=== PATIENT | female | born 2000 | race African-American/Black ===

== ENCOUNTER 2018-03-24 19:08 | Emergency (ER) | payer MEDICAID ==
--- NOTE | 2018-03-24 19:49 | ER Document Report ---
ED Headache - General Chief Complaint: Headache Stated Complaint: HEAD ACHE Time Seen by Provider: 03/24/18 19:34 Mode of Arrival: Ambulatory Information source: Patient TRAVEL OUTSIDE OF THE [place] IN LAST 30 DAYS: No - HPI Patient complains to provider of: Headache Notes: Patient is here with complaints of "brain pain "for the last year. She states that she seems to have intermittent pain that is migratory in nature around her entire head. She states that it is not a headache, that it is pain in her actual brain. She denies any head injury. No fever. She was having some blurred vision last year. She denies any blurred vision now. She denies any headache currently. Also complains of some tightness in her neck occasionally as well. No injury to the neck. She denies fevers. She denies nausea, vomiting, diarrhea. She denies unilateral numbness, tingling, weakness. No chest pain or shortness of breath. She is new to the area and states that she is in the process of getting established with a primary care doctor and has her first appointment in March. She denies any other complaints at this time. Nothing makes her symptoms better or worse. - Related Data Allergies/Adverse Reactions: No Known Allergies Allergy (Verified 03/24/18 20:02) Past Medical History - Social History Smoking Status: Unknown if Ever Smoked Family History: Reviewed & Not Pertinent Review of Systems - Review of Systems -: Yes All other systems reviewed and negative Physical Exam - Vital signs Vitals: Temp Pulse Resp BP Pulse Ox 99.8 F 100 18 110/63 100 03/24/18 19:20 03/24/18 19:20 03/24/18 19:20 03/24/18 19:20 03/24/18 19:20 - Notes Notes: GENERAL: alert, cooperative, nontoxic, no distress. HEAD: normocephalic, atraumatic EYES: conjunctiva pink without discharge, no external redness or swelling. Pupils are equal, round, reactive to light. EARS: no external swelling, no external redness NOSE: atraumatic, no external swelling MOUTH/THROAT: mucous membranes moist and pink, posterior pharynx without erythema, swelling, exudate. No trismus or drooling. NECK: soft, supple, full range of motion, no meningismus. CHEST: no distress, lungs clear and equal throughout. No wheezing, rales, rhonchi. CARDIAC: regular rate and rhythm, no murmur, normal capillary refill, normal pulses. No peripheral edema noted. BACK: full range of motion, no CVA tenderness. EXTREMITIES: full range of motion of all extremities. No redness, no swelling. NEURO: alert and oriented x 3, cranial nerves II through XII are grossly intact. Upper and lower extremities are equal throughout. Normal sensation. No focal deficits, full range of motion of all extremities. normal finger to nose. NIH stroke score of 0. PYSCH: appropriate mood, affect. Patient is cooperative. SKIN: pink, warm, dry, no rash. Course - Re-evaluation Re-evalutation: 03/24/18 20:42 Patient is nontoxic-appearing with stable vitals. She is here with complaints of "pain in her brain "for the last year. She denies any pain currently. She has a benign exam. Nonfocal neurological exam. She had no head injury. She also complains of some occasional stiffness in her neck. This point CT of the brain showed no acute findings in the emergency department. Patient can be discharged home with instructions to follow-up with her primary care doctor and to potentially get established with a neurologist due to her chronic head pain. Patient verbalized understanding of this. She will be discharged home with instructions to follow-up as directed. Follow-up sooner for severe worsening pain, high fever, blurred or loss vision, numbness, tingling, weakness, any further concerns. The patient's emergency department workup and current diagnosis were explained to the patient and or family. Follow-up instructions were provided. Medications if prescribed were discussed. Instructions for when to return to the emergency department including specific worrisome symptoms were discussed with the patient and/or family. - Vital Signs Vital signs: Temp Pulse Resp BP Pulse Ox 99.8 F 100 18 110/63 100 03/24/18 19:20 03/24/18 19:20 03/24/18 19:20 03/24/18 19:20 03/24/18 19:20 - Diagnostic Test Radiology reviewed: Image reviewed, Reports reviewed - CT head negative Discharge - Discharge Clinical Impression: Cephalgia Qualifiers: Headache type: unspecified Headache chronicity pattern: chronic headache Intractability: not intractable Qualified Code(s): R51 - Headache Condition: Stable Disposition: HOME, SELF-CARE Instructions: Headache ([facility]), Family Physicians / Practices Additional Instructions: Tylenol and Motrin as needed for pain when you are having the pain. Follow-up with your new primary care doctor as scheduled. Follow-up with neurology at the next available appointment. Follow-up sooner for worsening pain, fever, numbness, tingling, weakness, blurred or loss vision, persistent vomiting, or for any further concerns. Forms: Smoking Cessation Education Referrals: [facility] [Provider Group] - Follow up as needed MAC SCOTT MD [NO LOCAL MD] - Follow up as needed
--- NOTE | 2018-03-24 20:17 | RADIOLOGY REPORT (SQ) ---
EXAM DESCRIPTION: CT HEAD WITHOUT COMPLETED DATE/TIME: 03/24/2018 8:06 pm REASON FOR STUDY: INTERMITTENT HEADACHES OVER 1 YEAR COMPARISON: None. TECHNIQUE: Axial images acquired through the brain without intravenous contrast. Images reviewed wi th bone, brain and subdural windows. Images stored on PACS. All CT scanners at this facility use dose modulation, iterative reconstruction, and/or weight based d osing when appropriate to reduce radiation dose to as low as reasonably achievable (ALARA). [facility]: Dose Right [facility]: CareDose [facility]: Dose Right [facility]: Teradose 4D [facility]: Yi [employer] RADIATION DOSE: CT Rad equipment meets quality standard of care and radiation dose reduction techniq ues were employed. CTDIvol: 53.2 mGy. DLP: 1044 mGy-cm. mGy. LIMITATIONS: None. FINDINGS: VENTRICLES: Normal size and contour. CEREBRUM: No masses. No hemorrhage. No midline shift. No evidence for acute infarction. Normal gra y/white matter differentiation. No areas of low density in the white matter. CEREBELLUM: No masses. No hemorrhage. No alteration of density. No evidence for acute infarction. EXTRAAXIAL SPACES: No fluid collections. No masses. ORBITS AND GLOBE: No intra- or extraconal masses. Normal contour of globe without masses. CALVARIUM: No fracture. PARANASAL SINUSES: No fluid or mucosal thickening. SOFT TISSUES: No mass or hematoma. OTHER: No other significant finding. IMPRESSION: NORMAL BRAIN CT WITHOUT CONTRAST. EVIDENCE OF ACUTE STROKE: NO. COMMENT: Quality ID # [id number]: Final reports with documentation of one or more dose reduction techniques (e.g., Automated exposure control, adjustment of the mA and/or kV according to patient size, use of iterative reconstruction technique) TECHNICAL DOCUMENTATION: JOB ID: [id number] [employer]- All Rights Reserved Reading location - IP/workstation name: [email or web address]
[2018-03-24 21:13] VITALS: BP 112/63
== END 2018-03-24 21:11 | disposition home or self-care (01) ==
LOC: ER 19:08
DX: R51 Headache (principal); M43.6 Torticollis
CPT/HCPCS: 70450; 99284

== ENCOUNTER 2018-03-25 00:20 | Emergency (ER) | payer MEDICAID ==
[2018-03-25] MEDS ORDERED: NORMAL SALINE 1000 ML 1,000 ML IV ONE (01:05)
--- NOTE | 2018-03-25 01:19 | ER Document Report ---
ED General - General Chief Complaint: Palpitations Stated Complaint: RAPID HEART RATE/DIZZYNESS Time Seen by Provider: 03/25/18 00:57 Notes: Patient is a 18-year-old female who comes to the emergency department for chief complaint of feeling like her heart is racing, feeling lightheaded, she states she also felt a shortness of breath and discomfort in her chest. She states this lasted a very short amount of time, she denies any current symptoms except feeling "jittery". She states she was in a car with "a bunch of people smoking marijuana", she states she did not actually use any herself, she denies any other recreational drugs, she denies alcohol, smoking cigarettes, or any daily medications. She denies history of the same. TRAVEL OUTSIDE OF THE [place] IN LAST 30 DAYS: No - Related Data Allergies/Adverse Reactions: No Known Allergies Allergy (Verified 03/24/18 20:02) Past Medical History - General Information source: Patient - Social History Smoking Status: Never Smoker Frequency of alcohol use: None Drug Abuse: None Lives with: Friend Family History: Reviewed & Not Pertinent - Medical History Medical History: Negative Renal/ Medical History: Denies: Hx Peritoneal Dialysis Surgical Hx: Negative - Immunizations Immunizations up to date: Yes Hx Diphtheria, Pertussis, Tetanus Vaccination: Yes Review of Systems - Review of Systems Constitutional: See HPI EENT: No symptoms reported Cardiovascular: See HPI Respiratory: See HPI Gastrointestinal: No symptoms reported Genitourinary: No symptoms reported Female Genitourinary: No symptoms reported Musculoskeletal: No symptoms reported Skin: No symptoms reported Hematologic/Lymphatic: No symptoms reported Neurological/Psychological: See HPI Physical Exam - Vital signs Vitals: Temp Pulse Resp BP Pulse Ox 97.9 F 102 H 18 91/46 L 99 03/25/18 00:34 03/25/18 00:34 03/25/18 00:34 03/25/18 00:34 03/25/18 00:34 - General General appearance: Anxious In distress: None - HEENT Head: Normocephalic, Atraumatic Eyes: Normal Extraocular movements intact: Yes Eyelashes: Normal Pupils: PERRL Mouth/Lips: Normal Mucous membranes: Dry Pharynx: Normal Neck: Normal - Respiratory Respiratory status: No respiratory distress. No: Respiratory distress, Retractions, Tachypnea Breath sounds: Normal. No: Decreased air movement, Wheezing - Cardiovascular Rhythm: Regular, Tachycardia. No: Irregularly irregular, Extrasystoles Heart sounds: Normal auscultation, S1 appreciated, S2 appreciated Murmur: No Normal capillary refill: Yes - Abdominal Inspection: Normal Tenderness: Nontender. No: Tender, Guarding - Back Back: Normal, Nontender. No: Tender - Extremities General upper extremity: Normal inspection, Nontender, Normal strength, Normal temperature General lower extremity: Normal inspection, Nontender, Normal strength, Normal temperature. No: Edema - Neurological Neuro grossly intact: Yes Cognition: Normal Orientation: AAOx4 [place] Coma Scale Eye Opening: Spontaneous [place] Coma Scale Verbal: Oriented [place] Coma Scale Motor: Obeys Commands [place] Coma Scale Total: 15 Speech: Normal Cranial nerves: Normal Cerebellar coordination: Normal Motor strength normal: LUE, RUE, LLE, RLE Additional motor exam normals: Equal moving consultant Sensory: Normal - Skin Skin Temperature: Warm Skin Moisture: Dry Skin Color: Normal Course - Re-evaluation Re-evalutation: EKG showing tachycardia, no T-wave inversions or ST segment changes in consecutive leads, unremarkable MS and QTC. Chest x-ray unremarkable. CBC, chemistry, TSH unremarkable. Urinalysis nonspecific, hCG negative. After IV fluids, patient's tachycardia resolved, hypotension resolved, reevaluated her at bedside and she states she feels great and normal now. Elevated BUN, elevated specific gravity, suspect this was dehydration related although this is not certain. Low suspicion of PE, infection, ACS based on patient's symptom resolution after IV fluids. Discussed substances, hydration, workup, follow-up, and return precautions in detail with patient, patient requested to leave now, patient states understanding and agreement with plan. - Vital Signs Vital signs: Temp Pulse Resp BP Pulse Ox 97.9 F 92 18 105/66 97 03/25/18 00:34 03/25/18 06:00 03/25/18 06:00 03/25/18 06:00 03/25/18 06:00 - Laboratory Result Diagrams: 03/25/18 02:35 03/25/18 02:35 Laboratory results interpreted by me: 03/25/18 03/25/18 02:35 04:05 WBC 3.7 L Urine Protein 30 H Urine Ketones TRACE H Urine Urobilinogen 2.0 H Ur Leukocyte Esterase TRACE H Discharge - Discharge Clinical Impression: Rapid heart rate Condition: Stable Disposition: HOME, SELF-CARE Additional Instructions: Your laboratory workup showed dehydration but no concerning findings otherwise including normal thyroid, normal chemistry, normal blood counts. Stay better hydrated, avoid recreational substances, avoid other things that can cause rapid heart rate or palpitations including caffeine, decongestants, etc. follow- up with primary care for additional evaluation and management. Return if you worsen including difficulty breathing, passing out, fever, or any other concerning symptoms. Referrals: DEYSI TOLEDO DO [Primary Care Provider] - Follow up as needed
[2018-03-25 02:46] LABS: ABSOLUTE LYMPHOCYTES (AUTO) 1.3 10^3/uL (0.5-4.7); ABSOLUTE MONOCYTES (AUTO) 0.3 10^3/uL (0.1-1.4); BASOPHILS % (AUTO) 0.3 % (0-2); EOSINOPHILS % (AUTO) 1.2 % (0-6); HEMATOCRIT 37.7 % (36.0-47.0); HEMOGLOBIN 12.5 g/dL (12.0-15.5); LYMPHOCYTES % (AUTO) 35.6 % (13-45); MEAN CORPUSCULAR HEMOGLOBIN 28.3 pg (27.0-33.4); MEAN CORPUSCULAR HGB CONC 33.3 g/dL (32.0-36.0); MEAN CORPUSCULAR VOLUME 85 fl (80-97); MONOCYTES % (AUTO) 8.4 % (3-13); PLATELET COUNT 165 10^3/uL (150-450); RED BLOOD COUNT 4.44 10^6/uL (3.72-5.28); RED CELL DISTRIBUTION WIDTH 12.9 % (11.5-14.0); SEGMENTED NEUTROPHILS % (AUTO) 54.5 % (42-78); TOTAL CELLS COUNTED % (AUTO) 100 %; WHITE BLOOD COUNT 3.7 10^3/uL (4.0-10.5)
[2018-03-25 03:09] LABS: ANION GAP 10 (5-19); BLOOD UREA NITROGEN 16 mg/dL (7-20); CALCIUM 9.7 mg/dL (8.4-10.2); CARBON DIOXIDE 26 mmol/L (22-30); CHLORIDE 107 mmol/L (98-107); GLUCOSE 107 mg/dL (75-110); POTASSIUM 4.2 mmol/L (3.6-5.0); SODIUM 143.1 mmol/L (137-145)
[2018-03-25 03:25] LABS: FREE T4 (FREE THYROXINE) 1.03 ng/dL (0.78-2.19)
[2018-03-25 03:39] LABS: THYROID STIMULATING HORMONE 0.7 uIU/mL (0.47-4.68)
[2018-03-25 04:24] LABS: APPEARANCE,URINE SLIGHTLY-CLOUDY; BILIRUBIN,URINE NEGATIVE (NEGATIVE); COLOR,URINE YELLOW; GLUCOSE, URINE NEGATIVE (NEGATIVE); KETONES,URINE TRACE mg/dL (NEGATIVE); LEUKOCYTE ESTERASE,URINE TRACE (NEGATIVE); NITRITE,URINE NEGATIVE (NEGATIVE); PROTEIN,URINE 30 mg/dL (NEGATIVE); URINE SPECIFIC GRAVITY 1.024
--- NOTE | 2018-03-25 05:03 | RADIOLOGY REPORT (SQ) ---
EXAM DESCRIPTION: XR CHEST 1 VIEW CLINICAL HISTORY: 18 years Female, shortness of breath COMPARISON: None. NUMBER OF VIEWS/TECHNIQUE: 1/AP FINDINGS: Adequate lung volume, clear parenchyma, normal cardiac silhouette, and intact bony thorax. IMPRESSION: No acute cardiopulmonary findings.
[2018-03-25 05:22] VITALS: BP 105/66
--- NOTE | 2018-03-25 08:35 | EKG REPORT ---
SEVERITY:- ABNORMAL ECG - SINUS TACHYCARDIA INFERIOR Q WAVES, PROBABLY NORMAL VARIATION BORDERLINE T ABNORMALITIES, DIFFUSE LEADS : Confirmed by: Nitin Chambers MD 25-Mar-2018 08:35:03
== END 2018-03-25 06:00 | disposition home or self-care (01) ==
LOC: ER 00:20
DX: R00.0 Tachycardia, unspecified (principal); R00.2 Palpitations; R42 Dizziness and giddiness
CPT/HCPCS: 93005; 99285; 96360; 36415; 84439; 84443; 85025; 81025; 80048; 81001; 71045; 93010; J7030

== ENCOUNTER 2018-08-16 13:36 | Emergency (ER) | payer MEDICAID ==
[2018-08-16 13:48] VITALS: BP 123/58
--- NOTE | 2018-08-16 14:18 | ER Document Report ---
HPI - HPI Patient complains to provider of: Patient has had a viral illness for 6 days nausea vomiting diarrhea Onset: Other Onset/Duration: Better - 6-day Quality of pain: Cramping Severity: Mild Pain Level: 2 Context: Patient has had a viral illness for the last 6 days wants to go back to work tomorrow but were told her she had to have a note. She states she has not had any nausea or vomiting today Associated Symptoms: Diarrhea, Nausea, Vomiting Exacerbated by: Denies Relieved by: Denies Similar symptoms previously: Yes Recently seen / treated by doctor: No - ROS ROS below otherwise negative: Yes - CONSTITUTIONAL Constitutional: DENIES: Fever, Chills - EENT EENT: DENIES: Sore Throat, Ear Pain, Nasal Drainage-Clear, Nasal Drainage- Purulent, Congestion, Eye problems - NEURO Neurology: DENIES: Headache, Weakness, Vision blurred, Dizzinesss / Vertigo - CARDIOVASCULAR Cardiovascular: DENIES: Chest pain - RESPIRATORY Respiratory: DENIES: Trouble Breathing, Coughing - GASTROINTESTINAL Gastrointestinal: REPORTS: Nausea, Diarrhea Notes: Patient states she has had nausea vomiting and diarrhea for the last 6 days but has not vomited today and has had no diarrhea today and wants a work note to go back to work tomorrow - URINARY Urinary: DENIES: Dysuria, Urgency, Frequency - REPRODUCTIVE Reproductive: DENIES: :, Postmenopausal, Abnormal bleeding / discharge - MUSCULOSKELETAL Musculoskeletal: DENIES: Extremity pain, Back Pain, Neck Pain, Swelling - DERM Skin Color: Normal Skin Problems: None Past Medical History - General Information source: Patient - Social History Smoking Status: Never Smoker Cigarette use (# per day): No Chew tobacco use (# tins/day): No Smoking Education Provided: No Frequency of alcohol use: None Drug Abuse: None Lives with: Family Family History: Reviewed & Not Pertinent Patient has suicidal ideation: No Patient has homicidal ideation: No - Past Medical History Cardiac Medical History: Reports: None Pulmonary Medical History: Reports: None EENT Medical History: Reports: None Neurological Medical History: Reports: None Endocrine Medical History: Reports: None Renal/ Medical History: Reports: None Malignancy Medical History: Reports: None GI Medical History: Reports: None Musculoskeletal Medical History: Reports None Skin Medical History: Reports None Psychiatric Medical History: Reports: None Traumatic Medical History: Reports: None Infectious Medical History: Reports: None Surgical Hx: Negative Past Surgical History: Reports: None - Immunizations Immunizations up to date: Yes Hx Diphtheria, Pertussis, Tetanus Vaccination: Yes Vertical Provider Document - CONSTITUTIONAL Agree With Documented VS: Yes Exam Limitations: No Limitations General Appearance: WD/WN, No Apparent Distress - INFECTION CONTROL TRAVEL OUTSIDE OF THE [place] IN LAST 30 DAYS: No - HEENT HEENT: Atraumatic - NECK Neck: Normal Inspection - RESPIRATORY Respiratory: Breath Sounds Normal, No Respiratory Distress - CARDIOVASCULAR Cardiovascular: Regular Rate, Regular Rhythm - GI/ABDOMEN Gastrointestinal: Abdomen Soft, Abdomen Non-Tender, No Organomegaly, Normal Bowel Sounds - MUSCULOSKELETAL/EXTREMETIES Musculoskeletal/Extremeties: MAEW, FROM, Non-Tender - NEURO Level of Consciousness: Awake, Alert, Appropriate Motor/Sensory: No Motor Deficit, No Sensory Deficit - DERM Integumentary: Warm, Dry, No Rash Course - Re-evaluation Re-evalutation: 08/16/18 14:17 Patient states she is feeling much better today and she wants to be able to go back to work tomorrow she states she called work and they told her she could not come back to work until she had a note that said she could come back to work. Patient's assessment is within normal limits at this time. She has not vomited at all today. We will send her back to work. - Vital Signs Vital signs: Temp Pulse Resp BP Pulse Ox 99.0 F 85 16 123/58 L 99 08/16/18 13:47 08/16/18 13:47 08/16/18 13:47 08/16/18 13:47 08/16/18 13:47 Discharge - Discharge Clinical Impression: Viral illness Condition: Stable Disposition: HOME, SELF-CARE Additional Instructions: Viral Syndrome The physician has diagnosed a viral infection. Viruses not only cause "colds," but can cause many different symptoms including generalized aching, fever, headache, cough, diarrhea, nausea, vomiting, and fatigue. The treatment, for the most part, is simply relief of symptoms. This means that antibiotics are usually not given. Rest, fluids, pain medications and, occasionally, medication for the specific symptoms that are most bothersome will be prescribed. Use good handwashing to avoid passing the virus to others. Shared toys should be cleaned with disinfectant. Clean the toilets, sinks, and counter surfaces in bathrooms. Launder clothing in hot water. Contact the physician if you develop any new or unusual symptoms such as severe headache, stiff neck, high fever, chest pain, productive cough, or shortness of breath. You should be rechecked if you don't see marked improvement within seven to 10 days. FOLLOW-UP CARE: If you have been referred to a physician for follow-up care, call the physician s office for an appointment as you were instructed or within the next two days. If you experience worsening or a significant change in your symptoms, notify the physician immediately or return to the Emergency Department at any time for re-evaluation. Forms: Elevated Blood Pressure, Return to Work Referrals: DEYSI TOLEDO DO [Primary Care Provider] - Follow up as needed
== END 2018-08-16 14:30 | disposition home or self-care (01) ==
LOC: ER 13:36
DX: B34.9 Viral infection, unspecified (principal); R19.7 Diarrhea, unspecified
CPT/HCPCS: 99281